=== PATIENT | female | born 1980 | race Caucasian/White ===

== ENCOUNTER 2025-04-27 10:25 | Emergency (ER) | payer SELFPAY ==
[~2025-04-27] VITALS: Ht 185.4 cm; Wt 120.2 kg
[2025-04-27] MEDS ORDERED: VIBRAMYCIN100 MG PO (13:34)
[2025-04-27] MEDS ORDERED: CEPHALEXIN500 M1 PO (13:34)
[2025-04-27] MEDS ORDERED: CEPHALEXIN 500 MG CAP PO ONE (13:35)
[2025-04-27] MEDS ORDERED: Doxycycline Hyclate 100 MG CAPSULE PO ONE (13:35)
== END 2025-04-27 14:19 | disposition home or self-care (01) ==
LOC: ED 10:25
DX: L03.116 Cellulitis of left lower limb (principal)